=== PATIENT | female | born 1995 | race Caucasian/White ===

== ENCOUNTER 2016-04-26 12:27 | Emergency (ER) | payer OTHER ==
[2016-04-26 12:52] VITALS: BP 112/64
--- NOTE | 2016-04-26 13:49 | UC ---
UC General HPI - HPI Summary HPI Summary: ONE WEEK OF NASAL CONGESTION, COUGH. SYMPTOMS HAVE IMPROVED CONSIDERABLY. ONLY OCCASIONAL COUGH NOW. NO FEVER. - History of Current Complaint Chief Complaint: UCRespiratory Stated Complaint: CONGESTION Time Seen by Provider: 04/26/16 12:49 Hx Obtained From: Patient Onset/Duration: Gradual Onset, Lasting Weeks, Resolved Onset Severity: Moderate Current Severity: None Pain Intensity: 0 Associated Signs & Symptoms: Positive: Cough - VERY INFREQUENT. 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 Denies: Hypertension Respiratory History Of: Denies: COPD, Asthma GI/ History Of: Denies: Ulcer - Surgical History Surgical History: Yes Surgery Procedure, Year, and Place: wisdom teeth - Family History Known Family History: Positive: Respiratory Disease - MOTHER COPD - Social History Occupation: Employed Full-time Lives: With Family Alcohol Use: None Substance Use Type: Marijuana Smoking Status (MU): Never Smoked Tobacco Household Exposure Type: Cigarettes - Immunization History Most Recent Influenza Vaccination: 2013 Most Recent Pneumonia Vaccination: never Vaccination Up to Date: Yes Review of Systems Constitutional: Negative Skin: Negative Eyes: Negative ENT: Negative Respiratory: Cough - INFREQUENT Cardiovascular: Negative Gastrointestinal: Negative Genitourinary: Negative Motor: Negative Neurovascular: Negative Musculoskeletal: Negative Neurological: Negative Psychological: Negative All Other Systems Reviewed And Are Negative: Yes Physical Exam Triage Information Reviewed: Yes Appearance: Well-Appearing, No Pain Distress, Well-Nourished Vital Signs: Initial Vital Signs Temp 97.4 F 04/26/16 12:47 Pulse 74 04/26/16 12:47 Resp 16 04/26/16 12:47 BP 112/64 04/26/16 12:47 Pulse Ox 100 04/26/16 12:47 Vital Signs Reviewed: Yes Eye Exam: Normal ENT Exam: Normal ENT: Positive: Normal ENT inspection, Hearing grossly normal, Pharynx normal, TMs normal Dental Exam: Normal Neck exam: Normal Neck: Positive: Supple, Nontender, No Lymphadenopathy. Negative: Nuchal Rigidity Respiratory Exam: Normal Respiratory: Positive: Chest non-tender, Lungs clear, Normal breath sounds, No respiratory distress, No accessory muscle use Cardiovascular Exam: Normal Cardiovascular: Positive: RRR, No Murmur, Pulses Normal Abdominal Exam: Normal Musculoskeletal Exam: Normal Musculoskeletal: Positive: Strength Intact Neurological Exam: Normal Psychological Exam: Normal Skin Exam: Normal Course/Dx - Differential Dx - Multi-Symptom Differential Diagnoses: Other - URI, SINUSITIS, BRONCHITIS Provider Diagnoses: UPPER RESPIRATORY INFECTION Discharge - Discharge Plan Condition: Stable Disposition: HOME Patient Education Materials: Upper Respiratory Infection (ED) Forms: *Work Release Referrals: Chantelle Vazquez MD [Primary Care Provider] -
== END 2016-04-26 13:53 | disposition home or self-care (01) ==
LOC: UCEAST 12:27
DX: J06.9 Acute upper respiratory infection, unspecified (principal); F12.90 Cannabis use, unspecified, uncomplicated; Z77.22 Contact with and (suspected) exposure to environmental tobacco smoke (acute) (chronic)
CPT/HCPCS: 99211; G0463

== ENCOUNTER 2016-05-28 22:53 | Emergency (ER) | payer OTHER ==
[2016-05-29 00:31] VITALS: BP 144/59
== END 2016-05-29 01:00 | disposition left against medical advice (07) ==
LOC: ED 22:53
DX: R00.2 Palpitations (principal)

== ENCOUNTER 2019-02-09 14:43 | Emergency (ER) | payer SELFPAY ==
--- NOTE | 2019-02-09 14:46 | UC ---
Upper Extremity HPI - HPI Summary HPI Summary: Yesterday had R wrist pain but ignored it. Woke up today and noticed a small bruise. cannot recall getting injured. feels hand is cold. 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 denies any other symptoms. - History of Current Complaint Chief Complaint: UCUpperExtremity Stated Complaint: WRIST PAIN Time Seen by Provider: 02/09/19 14:46 Hx Obtained From: Patient Hx Last Menstrual Period: 04/27/16 Aggravating Factor(s): Nothing Alleviating Factor(s): Nothing - Risk Factors DVT Risk Factors: Negative - Allergies/Home Medications Allergies/Adverse Reactions: Allergies Allergy/AdvReac Type Severity Reaction Status Date / Time No Known Allergies Allergy Unverified 02/09/19 14:56 PMH/Surg Hx/FS Hx/Imm Hx Previously Healthy: Yes - Surgical History Surgical History: Yes Surgery Procedure, Year, and Place: wisdom teeth - Family History Known Family History: Positive: Respiratory Disease - MOTHER COPD - Social History Alcohol Use: None Substance Use Type: Marijuana Smoking Status (MU): Never Smoked Tobacco Household Exposure Type: Cigarettes - Immunization History Most Recent Influenza Vaccination: 2013 Most Recent Pneumonia Vaccination: never Vaccination Up to Date: Yes Review of Systems All Other Systems Reviewed And Are Negative: Yes Constitutional: Negative: Fever, Chills, Fatigue Skin: Positive: Bruising. Negative: Rash Motor: Negative: Decreased ROM, Weakness Neurovascular: Negative: Decreased Sensation Musculoskeletal: Positive: Arthralgia - R wrist. Negative: Decreased ROM, Edema , Myalgia Neurological: Positive: Other - cold feeling R hand. Negative: Weakness, Paresthesia Physical Exam Triage Information Reviewed: Yes Appearance: Well-Appearing Vital Signs Reviewed: Yes Respiratory: Positive: No respiratory distress Musculoskeletal: Positive: Strength Intact - R wrist., ROM Intact - R wrist, No Edema - R wrist, Other: - nontender wrist, no swelling of any joints of R hand Neurological: Positive: Alert Skin: Positive: Other - small healing bruise at lateral R wrist, nontender approx 1cm Upper Extremity Course/Dx - Course Course Of Treatment: Unclear etiology of R wrist pain but we were able to put it in a brace and have asked her to monitor for worsening symptoms. No neuro deficits. good vitals. - Differential Dx/Diagnosis Differential Diagnosis/HQI/PQRI: Bursitis, Contusion, Strain, Sprain Provider Diagnosis: Wrist pain Discharge ED - Sign-Out/Discharge Documenting (check all that apply): Patient Departure All imaging exams completed and their final reports reviewed: No Studies - Discharge Plan Condition: Good Disposition: HOME Prescriptions: Ibuprofen [Ibu] 600 mg PO TID 10 Days #30 tablet Patient Education Materials: Arthralgia (ED) Referrals: Chantelle Vazquez MD [Primary Care Provider] - Additional Instructions: see pcp if worsening. - Billing Disposition and Condition Condition: GOOD Disposition: Home - Attestation Statements Provider Attestation: I was available for consult. This patient was seen by the [facility]AGNER. The patient was not presented to, seen by, or examined by me. -Amy
[2019-02-09 14:56] VITALS: BP 120/64
== END 2019-02-09 15:03 | disposition home or self-care (01) ==
LOC: UCEAST 14:43
DX: M25.531 Pain in right wrist (principal)
CPT/HCPCS: 99213; G0463